=== PATIENT | male | born 1965 | race Two or more races ===

== ENCOUNTER → 2024-05-03 07:32 | Outpatient (REF) | payer BC, SELFPAY | LOC: HWRAD 07:32 | PROVIDERS: ATTENDING PHYSICIAN Physician Assistant | DX: R31.9 Hematuria, unspecified (principal); R06.02 Shortness of breath | CPT/HCPCS: 71046; 74176 ==

== ENCOUNTER 2024-05-03 19:22 | Inpatient (IN) | payer BC, SELFPAY ==
[2024-05-03 14:51] VITALS: BP 102/70
[2024-05-03 15:07] LABS: % Basophils 0.4 % (0-2); % Eosinophils 1.8 % (0-6); % Immature Granulocytes 0.8 % (0-0.5); % Lymphocytes 7.5 % (20.5-51.1); % Monocytes 9.3 % (1.7-9.3); % Neutrophils 80.2 % (42.2-75.2); Absolute Eosinophils 0.1 10^3/uL (0-0.7); Absolute Immature Granulocytes 0.1 10^3/uL (0-0.05); Absolute Lymphocytes 0.6 10^3/uL (1.2-3.4); Absolute Monocytes 0.7 10^3/uL (0.1-0.6); Absolute Neutrophils 5.9 10^3/uL (1.4-6.5); Hematocrit 42.2 % (39.0-52.0); Hemoglobin 14.5 g/dL (13.0-18.0); Mean Corp Hgb Conc. 34.4 g/dL (33.0-37.0); Mean Corpuscular Hgb 27.8 pg (27.0-31.0); Mean Platelet Volume 8.9 fL (7.4-10.4); Nucleated Red Blood Cells % 0 % (-); Platelet Count 243 10^3/uL (130-400); Red Blood Cell Count 5.21 10^6/uL (4.70-6.10); Red Cell Dist. Width 12.6 % (11.5-14.5); White Blood Cell Count 7.3 10^3/uL (4.8-10.8)
[2024-05-03 15:30] LABS: ALT (SGPT) 168 U/L (0-50); AST (SGOT) 91 U/L (17-59); Albumin 4.1 g/dl (3.5-5.0); Alkaline Phosphatase 178 U/L (38-126); Blood Urea Nitrogen 11 mg/dl (9-20); Calcium 9.3 mg/dl (8.4-10.2); Carbon Dioxide 22 mmol/L (22-30); Chloride 101 mmol/L (98-107); Glucose 119 mg/dl (70-99); Potassium 4.2 mmol/L (3.5-5.1); Sodium 135 mmol/L (135-145); Total Bilirubin 1.3 mg/dl (0.2-1.3); Total Protein 6.7 g/dl (6.3-8.2); eGFR > 60.00
[2024-05-03 16:11] LABS: Lipase > 4000 U/L (23-300)
--- NOTE | 2024-05-03 17:39 | ED.GENMED ---
History of Present Illness
General
Chief Complaint: Abdominal Pain
Source: patient and spouse
Exam Limitations: none
Time Seen by Provider: 05/03/24 17:23
Nursing documentation reviewed up to this point in time: agreed with
History of Present Illness
History of Present Illness:
Patient to ED with complaint of upper abd. pain. Symptoms started approx 4-5 days ago. He was seen by PCP and placed on bactrim DS for susptected UTI. He continues to take. Symptoms persisted. He was sent for outpatient abd CT today which
revealed suspected pancreatitis, mesenteric panniculitis, left UVJ stone measuring 8x4mm. He was then sent to ED by PCP for admision. Denies fever but reports chills. +nausea, no vomiting. No prior history of same. Brought to ED by spouse for
eval
Past History
Past History
ED Past Medical History: HTN
ED Past Surgical History: Cholecystectomy
Social History
Tobacco: Non-smoker
Alcohol: None
Drug: None
Personal:
Living: with family
Employment: Employed
Family History
Family History: Hypertension
Review of Systems
Review of Systems
Allergies reviewed?: Yes
All Other Systems: ROS reviewed and negative except as documented in HPI and ROS
Constitutional: Reports chills
EENT: Reports no symptoms
Respiratory: Reports no symptoms
Cardiac: Reports no symptoms
ABD/GI: Reports abdominal pain and nausea
: Reports dark urine
Musculoskeletal: Reports no symptoms
Skin: Reports no symptoms
Neurological: Reports headache
Psychiatric: Reports no symptoms
Phy Exam
General Physical Exam
General Presentation: mild distress
General age: appears stated age
General Skin: warm and dry
General Habitus: normal
General Mental: alert
Cardiovascular Exam
Cardiovascular Exam: regular rate/rhythm and no edema
Pulmonary Exam
Pulmonary Exam: no respiratory distress and chest non tender
Gastrointestinal Exam
Gastrointestinal Exam: normal bowel sounds and guarding
Palpation: left upper quadrant: Moderate tenderness, left lower quadrant: No tenderness, right upper quadrant: Moderate tenderness and right lower quadrant: No tenderness
Musculoskeletal Exam
Musculoskeletal Exam: full ROM and neuro vasc intact
Skin Exam
Skin Exam: normal color, warm/dry and no rash
Psychiatric Exam
Psychiatric Exam: normal mood/affect
Course
Orders/Labs/Results
Orders:
Orders
05/03/24 Dinner
NPO
Allow oral meds: Yes
Allow clear liquids: Sips of Clears
Complete Blood Count/With Diff Urgent
Comprehensive Metabolic Panel Urgent
Lipase Urgent
05/03/24 17:38
0.9% Sodium Chloride 1000 ml [Nss] 1,000 ml IV BOLUS
05/03/24 18:18
Urinalysis Reflex To Culture Urgent
Date Specimen was Collected: 05/03/24
Time Specimen was Collected: 17:39
Urine Microscopic Reflex Cult Urgent
Urine Culture Urgent
ELIEZER Source: U
Specimen Description:
Date Specimen was Collected: 05/03/24
Time Specimen was Collected: 17:39
05/03/24 18:41
Admit/Transfer Patient As Directed
Co-Sign Provider:
Level of Care: Inpatient admission
Assign to:: Medical/Surgical
Physician / Group: Deniz Olivier
Diagnosis: pancreatitis, mesenteric panniculitis, left ureteral calculus
Reason for Hospitalization: pancreatitis, mesenteric panniculitis, left ureteral calculus
Expected length of stay greater than two midnights?: Yes
ELOS- Estimated Length of Stay in days: 3
I certify the patient meets the requirements for IP care: Yes
PRN Pain Medication Management As Directed
May give lesser potent ordered pain med per pt: Yes
preference::
Protocol:: Medication orders for pain may be administered in a
manner that supports deferring to patient preference
when the pt is:
- Requesting an ordered lesser potent pain medication.
Least to most potent pain medications are defined
as: acetaminophen < NSAID < tramadol < opioids
(morphine, oxycodone, hydromorphone).
- Requesting a lesser dose of the same medication IF
ORDERED.
- Requesting a less intrusive route of administration
if both routes are prescribed by the provider (PO <
IV).
05/03/24 18:43
Code Status As Directed
Resuscitation Status: Full Code
05/03/24 21:03
Lactated Ringers [Lr] 1,000 ml IV 150 mls/hr
Morphine Sulfate 1 mg IV Q4HPRN PRN
Ondansetron Injectable [Zofran] 4 mg IV Q6HPRN PRN
05/03/24 21:03
GASTROINTESTINAL CONSULT Routine
Consulting Provider: Judith Boo
Was physician already notified: Yes
UROLOGY CONSULT Routine
Consulting Provider: Jd Rodriguez
Was physician already notified: Yes
Activity As Directed
Activity Level: Ambulate
Pneumatic Compression Sleeves As Directed
Type: Knee high
Vital Signs As Directed
Frequency: Per unit guidelines
05/03/24 22:00
CefTRIAXone [Rocephin] 1,000 mg IV Q24H
05/04/24 06:00
Complete Blood Count/No Diff IN AM
Comprehensive Metabolic Panel IN AM
Lipase IN AM
05/05/24 06:00
Complete Blood Count/No Diff IN AM
Comprehensive Metabolic Panel IN AM
05/06/24 06:00
Complete Blood Count/No Diff IN AM
Comprehensive Metabolic Panel IN AM
Abnormal Lab Results
05/03/24 05/03/24
15 18:18
Abs Immat Gran (auto) 0.1 H 10^3/uL
(0-0.05)
Absolute Lymphs (auto) 0.6 L 10^3/uL
(1.2-3.4)
Absolute Monos (auto) 0.7 H 10^3/uL
(0.1-0.6)
Immature Gran % 0.8 H %
(0-0.5)
Neutrophils % 80.2 H %
(42.2-75.2)
Lymphocytes % 7.5 L %
(20.5-51.1)
Glucose 119 H mg/dl
(70-99)
AST 91 H U/L
(17-59)
ALT 168 H U/L
(0-50)
Alkaline Phosphatase 178 H U/L
(38-126)
Lipase > 4000 H* U/L
(23-300)
Urine Ketones Trace A
(Negative)
Ur Occult Blood Reflex 4+ A
(Negative)
Urine Nitrite (Reflex) Positive A
(Negative)
Urine Bilirubin 1+ A
(Negative)
Urine Urobilinogen 2+ A
(Neg - 1+)
Leukocyte Esterase Rfl 1+ A
(Negative)
Urine RBC 16-20 A /HPF
(0-2)
Urine Bacteria (Reflex) Moderate A
(Negative)
05/03/24 15:00
05/03/24 15:00
Vital Signs
Initial and Last Documented VS:
Initial Vital Signs
Temp Pulse Resp BP Pulse Ox
98.0 F 106 18 102/70 98
05/03/24 14:51 05/03/24 14:51 05/03/24 14:51 05/03/24 14:51 05/03/24 14:51
Last Documented Vital Signs
Temp Pulse Resp BP Pulse Ox
99.7 F 117 16 122/86 99
05/03/24 21:01 05/03/24 21:01 05/03/24 21:01 05/03/24 21:01 05/03/24 21:01
*Radiology
Radiology exam reviewed: other (Outpatient CT report reviewed)
*Pulse Oximetry
Patient hypoxic: no
*Critical Care Note
Total Time (30-74mins, 75-104mins- exclusive of procedures): Not Applicable
Update Note
Update Note:
Patient sent to ED after outpatient CT of abd. today reveals pancreatitis, left 8x4mm UVJ stone ( no significatn hydronephrosis/hydroureter). Upper abd. pain x 4-5 days. Currently on course of bactrim for suspected UTI by PCP. Labs reviewed.
Lipase >4000. Ast 91, ALT 168. Will admit to hospitalist service. UA results pending.
ED Attending Note
-
Portions of this chart may have been created with voice recognition software.� Occasional wrong word or��sound alike� substitutions may have occurred due to the inherent limitations of voice recognition software.
Discharge Plan
Departure
Patient Disposition: Admit
Date of Disposition: 05/03/24
Time of Disposition: 17:48
Presentation/result/management discussed w/ accepting MD/DO: Hospitalist
Condition: Fair
Covid-19: Not Applicable
Discharge Problem:
Acute pancreatitis, Mesenteric panniculitis, Left ureteral calculus
Interventions
Interventions:
*Risk Screen - Suicide Last Done: 05/03/24 14:51
*General Assessment Last Done: 05/03/24 14:51
*Neglect/Abuse Screening Last Done: 05/03/24 14:51
ED- Fall Risk Assessment Last Done: 05/03/24 17:29
*Nursing Disposition Last Done: 05/03/24 21:01
TY-Lcigpr-Rmxqfjpbjk Assessment Last Done: 05/03/24 17:29
Discharge Date and Time
Discharge Date/Time: 05/03/24 21:04
--- NOTE | 2024-05-03 18:01 | HPS.HSE ---
Family Physician
-
Family Physician:
Chief Complaint
-
abdominal pain
History of Present Illness
Patient is a 58-year-old male with past medical history significant for hypertension who presented to [place] ED for evaluation by recommendation of primary provider. Patient reports upper abdominal pain that started 4-5 days ago. Patient reports
noticing blood in urine post work outs and now is consistent every time he urinates. He also complains of generalized abdominal pain for past 4-5 days associated with diarrhea, nausea, subjective fever and chills. Patient primary care provider sent
for outpatient abdominal CT and when received results instructed patient to go to ED for evaluation and treatment. Patient denies any cough, shortness of breath, chest pain, emesis, or constipation.
Medical History
Past Medical History
Past Medical History: Reports Other
Additional Past Medical History:
Hypertension
Past Surgical History: Reports Other
Additional Past Surgical History:
cholecystectomy
Social History
Tobacco: Non-smoker
Alcohol: None
Drug: None
Personal:
Living: With Family
Employment: Employed
Family History
Family History: Not pertinent
Allergies / Home Medications
Allergies reflects when Allergies were last updated in [facility].
Home Medications with original date entered in [facility]
Allergy/Medication List:
Allergies
Allergy/AdvReac Type Severity Reaction Status Date / Time
No Known Allergies Allergy Verified 05/03/24 14:51
Home Medications
acetaminophen 500 mg tablet (Tylenol Extra Strength) 1,000 mg PO Q6HPRN PRN mild pain 05/03/24
lisinopril 5 mg tablet 5 mg PO DAILY 05/03/24
sulfamethoxazole 800 mg-trimethoprim 160 mg tablet (Bactrim DS) 1 tab PO BID 05/03/24
Review of Systems
-
History Source: Patient
Constitutional: Reports Fever and Chills
EENT: Reports No Symptoms
Respiratory: Reports No Symptoms
Cardiac: Reports No Symptoms
Abdomen/GI: Reports Abdominal Pain, Nausea and Diarrhea
: Reports Frequency, Urgency and Dark Urine
Musculoskeletal: Reports No Symptoms
Skin: Reports No Symptoms
Neurological: Reports No Symptoms
Endocrine: Reports No Symptoms
Hematologic/Lymphatic: Reports No Symptoms
Psych: Reports No Symptoms
Physical Exam
Vital Signs
Vital Signs
Temp Pulse Resp BP Pulse Ox
98.0 F 106 18 102/70 98
05/03/24 14:51 05/03/24 14:51 05/03/24 14:51 05/03/24 14:51 05/03/24 14:51
Physical Exam
General: Well Developed, Well Nourished, No Apparent Distress and Conversant
HEENT: NormoCephalic, Moist mucous membranes, Atraumatic, [place] Conjunctivae, Nose Appears Normal and Ears Appear Normal
Respiratory: Clear and Non Labored Respirations
Cardiac: S1/S2 and Regular Rhythm; No Murmur, Rub or Gallop
Breast: Deferred by me
GI: Soft, Normal Bowel Sounds, Tender and Distended (mild distension); No Organomegaly
Rectal: Deferred by Provider
Genito-urinary: Bloody Urine
Musculoskeletal: No Clubbing, No Cyanosis and No Edema
Skin: Warm and IV/Catheter Site; No Rash
Neuro: Awake, Alert, AO x 3 and Nonfocal/grossly intact
Hematologic/Lymphatic: No Lymphadenopathy
Psych: Calm and Intact Judgment/Insight
Laboratory Results
-
05/03/24 15:00
05/03/24 15:00
Laboratory Results
Total Bilirubin 1.3 mg/dl (0.2-1.3) 05/03/24 15:00
AST 91 U/L (17-59) H 05/03/24 15:00
ALT 168 U/L (0-50) H 05/03/24 15:00
Alkaline Phosphatase 178 U/L (38-126) H 05/03/24 15:00
Lipase > 4000 U/L (23-300) H* 05/03/24 15:00
Data Reviewed
-
Diagnostic Radiology: Report Reviewed by me (CXR: No radiographic evidence of acute cardiopulmonary abnormality.)
CT Scan: Report Reviewed by me (Abd/Pelvis:1).There is an 8 x 4 mm calculus at the left ureteropelvic junction without significant associated left hydronephrosis 2). There is an approximately 12 cm area of mesenteric panniculitis 3). Separate from
the mesenteric panniculitis, there is inflammatory stranding around the tail and p)
Lab Data: Labs Reviewed by me (neut 80.2, AST 91, ALT 168, Alk Phos 175, Lipase >4000)
Impression/Plan
-
IMPRESSION/PLAN:
#pancreatitis
#mesenteric panniculitis
Abd/Pelvis CT: 1).There is an 8 x 4 mm calculus at the left ureteropelvic junction without significant associated left hydronephrosis
2). There is an approximately 12 cm area of mesenteric panniculitis
3). Separate from the mesenteric panniculitis, there is inflammatory stranding around the tail and proximal body of the pancreas with associated inflammatory thickening of the left anterior pararenal fascia suggesting
pancreatitis, the
appearance of which has worsened in the interval since the 05/31/2020 examination. Correlation with patient's serum amylase and lipase is recommended.
4). There is cholecystectomy
5). Bilateral renal cysts including a septated cyst at the lower pole.
6). Degenerative disc disease at L5-S1
- Admit to med/surg
- consult GI
- IVF with LR
- pain regimen
- antiemetics
#infected left ureteral calculus
Abd/Pelvis CT: 1).There is an 8 x 4 mm calculus at the left ureteropelvic junction without significant associated left hydronephrosis
2). There is an approximately 12 cm area of mesenteric panniculitis
3). Separate from the mesenteric panniculitis, there is inflammatory stranding around the tail and proximal body of the pancreas with associated inflammatory thickening of the left anterior pararenal fascia suggesting
pancreatitis, the
appearance of which has worsened in the interval since the 05/31/2020 examination. Correlation with patient's serum amylase and lipase is recommended.
4). There is cholecystectomy
5). Bilateral renal cysts including a septated cyst at the lower pole.
6). Degenerative disc disease at L5-S1
- consult urology
- Ceftriaxone
#Hypertension
- hold lisinopril
Code Status: Full code
DVT Prophylaxis: SCDs
[2024-05-03] MEDS: NSS 1000 IV (18:10)
[2024-05-03 18:24] LABS: Urine Albumin Trace (Neg - Trace); Urine Bilirubin 1+ (Negative); Urine Character Slightly Cloudy (Clear); Urine Color Yellow; Urine Glucose Negative (Negative); Urine Ketone Trace (Negative); Urine Leukocyte 1+ (Negative); Urine Nitrite Positive (Negative); Urine Occult Blood 4+ (Negative); Urine Specific Gravity 1.025 (<1.030); Urine Urobilinogen 2+ (Neg - 1+)
[2024-05-03 18:36] LABS: Urine Bacteria Moderate (Negative); Urine Red Blood Cell 16-20 /HPF (0-2); Urine Squamous Cell 0-2 /LPF (Few); Urine White Cell 0-2 /HPF (0-5)
[2024-05-03 18:37] LABS: Urine Calcium Oxalate Crystals Present; Urine Mucus Few
--- NOTE | 2024-05-03 18:37 | W.PN.UPDATE ---
Update Note
Progress Note Update
This is an addendum to the H&P written by Naz Mcarthur on 05/03/2024. Patient seen and examined independently with MECH[employer]IC [employer]IVER.
58-year-old male past medical history of gallstone pancreatitis status post cholecystectomy, hypertension, presenting with hematuria, generalized abdominal pain starting 4 to 5 days ago. He was started on Bactrim for suspected UTI. He had
outpatient CT scan today which revealed suspected pancreatitis at the tail of the pancreas, mesenteric panniculitis and left UVJ stone 8 x 4 mm. He was sent to the emergency room. Has chills without fever. Has nausea without vomiting.
Patient tachycardic with normal vitals otherwise.
Labs show transaminitis and lipase greater than 4000. Chest x-ray shows no acute process.
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
Urinalysis appears infected.
NPO. IV fluids. Ceftriaxone to treat obstructive stone infection. Dilaudid/Zofran. GI consulted. Urology consulted. Hold lisinopril.
[2024-05-03 18:38] VITALS: BP 106/74
[2024-05-03 21:01] VITALS: BP 122/86; BMI 29.1
[2024-05-03] MEDS: LR 1000 IV (21:28)
[2024-05-03] MEDS: STERILE WATER FOR INJECTION 10 ML IV (21:28)
[2024-05-03] MEDS: ROCEPHIN 1000 MG IV (21:28)
[2024-05-03] MEDS: FLUSH (NSS) 1 FLUSH IV ×2 (21:29)
[2024-05-03 23:45] VITALS: BP 115/81
[2024-05-04] VITALS (16 sets, daily range): BP systolic 117–134; BP diastolic 72–115
[2024-05-04] MEDS: LR 1000 IV ×3 (04:33→20:43)
[2024-05-04 06:44] LABS: Hematocrit 38.1 % (39.0-52.0); Mean Corp Hgb Conc. 34.1 g/dL (33.0-37.0); Mean Corpuscular Hgb 28.1 pg (27.0-31.0); Mean Corpuscular Volume 82.5 fL (80.0-94.0); Mean Platelet Volume 9.2 fL (7.4-10.4); Platelet Count 234 10^3/uL (130-400); Red Blood Cell Count 4.62 10^6/uL (4.70-6.10)
[2024-05-04 07:55] LABS: ALT (SGPT) 138 U/L (0-50); AST (SGOT) 65 U/L (17-59); Albumin 3.3 g/dl (3.5-5.0); Alkaline Phosphatase 175 U/L (38-126); Blood Urea Nitrogen 10 mg/dl (9-20); Calcium 8.5 mg/dl (8.4-10.2); Carbon Dioxide 22 mmol/L (22-30); Chloride 104 mmol/L (98-107); Estimated Creatinine Clearance 96 ml/min; Glucose 80 mg/dl (70-99); Potassium 4.3 mmol/L (3.5-5.1); Sodium 135 mmol/L (135-145); Total Bilirubin 1.4 mg/dl (0.2-1.3); Total Protein 5.8 g/dl (6.3-8.2); eGFR > 60.00
[2024-05-04 08:14] LABS: Lipase > 4000 U/L (23-300)
--- NOTE | 2024-05-04 08:47 | W.PN.URO.CBU ---
Today's Communication / Plan
-
op room
Assessment / Plan
-
impassable stone and pacncraetiis but stone may cbe single source of discomfort plan to op roon and stenting and attempt stone retrieval if stable
Diagnosis
-
Date of Service: May 04, 2024
-
Patient Diagnosis:dx is chronic pancreatitis but new left 8mm upj stone
Post Op Day:
Subjective
-
mid epigastic pain hematuria
Objective
-
Vital Signs
Temp Pulse Resp BP Pulse Ox
98.0 F 104 16 125/72 100
05/04/24 07:41 05/04/24 07:41 05/04/24 07:41 05/04/24 07:41 05/04/24 07:41
Intake and Output
05/03/24 05/04/24 05/05/24
06:59 06:59 06:59
Intake Total 1540 / 1540
Balance 1540 / 1540
Intake:
Oral fluids 240 / 240
IV fluids (Total) 1300 / 1300
Other:
Number of approximated MODERATE 1
amounts of urine
Laboratory Results
05/04/24 06:12
05/04/24 06:12
Review of Systems
-
Abdomen/GI: Abdominal Pain and Nausea
: Flank Pain
Physical Exam
-
General - well developed, well nourished, no acute distress non toxic
Chest - clear bilaterally
Abdomen - soft, non-tender, positive bowel sounds, no CVAT, no incisional pain or distention
Genitalia - normal
Rectal - normal
Skin - warm & dry with no rash
Neuro - AOx3, no motor deficits
Extremities - no clubbing, no cyanosis, no edema
Incision - clean, dry
Dressing - clean, dry, intact
Care Review
Data Reviewed
Discussed with: Nursing and Family
CT Scan: Image Pers Reviewed
--- NOTE | 2024-05-04 11:00 | CON.GI ---
Addendum entered and electronically signed by Tiffanie Marin DO 05/04/24 15:13:
The patient was seen and examined by me independently in collaboration with the nurse practitioner.
Past medical history/social history/medications/allergies/family history reviewed.
Lab data and imaging data reviewed.
Briefly, Romain Cronin is a 58 y.o. male with pmhx gallstone pancreatitis s/p cholecystectomy (2020) admitted with 1 week of hematuria s/p treatment with bactrim, CT on arrival showed 8x4 mm calculus at the left ureteropelvic junction w/o hydro, 12
cm area of mesenteric panniculitis and inflammatory stranding around the tail and proximal body of the pancreas with inflammatory thickening of the left anterior pararenal fascia consistent with acute pancreatitis. He was seen by Urology this
morning, taken to the OR for cystoscopy w/ stent placement. 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
BUN 10/Cr. 0.8
Tbili 1.3 --> 1.4
AST 91 --> 65
ALT 168 --> 138
Alk phos 178--> 175
Lipase >4,000
This is a very puzzling presentation as I initially felt his UPJ stone could be causing nearby inflammation, leading to his acute pancreatitis and findings of mesenteric panniculitis. However, patient had same exact findings on imaging in 2020 at
the time of prior gallstone pancreatitis. His presenting symptoms and exam is not consistent with acute pancreatitis and not sure what to make of it and if there are truly 2 separate processes occuring simultaneously. Interestingly, patient received
Bactrim on both occasions where he has been diagnosed with acute pancreatitis. It is a documented side-effect but rare occurrence. Regardless, I would recommend treating for acute pancreatitis with fluids and advancing diet as tolerating. Agree with
stopping Bactrim, changed to Rocephin.
Once he is discharged, outpatient f/u with GI for MRCP-- ideally waiting about 4-6 weeks until inflammation resolves. If unrevealing, would even consider EUS given the atypical presentation.
Original Note:
Consultation
-
Date/Time Consultation Requested: 05/03/24 1500
Date/Time Consultation Performed: 05/04/24 1100
Requesting Provider: MURRAY Yi
Performing Provider: MURRAY Hui, Carmita Marin DO
Reason for Consultation: pancreatitis/ panniculutis
Medical History
Chief Complaint / HPI
Chief Complaint: abdominal pain
History of Present Illness:
Pt is a 58yo with hx HTN, prior delano with pancreatitis in 2020 with noted Bactrim use prior to that admission. CT at that time with possible CBD stone and primary mesenteric panniculitis but MRI without stone and delano was completed and discharge.
He has been fine since that time and now noted with hematuria about 1 week ago. He was given Bactrim by PCP and felt worse with mild mid abdominal pain, fever and diarrhea. with onset of upper abdominal pain. With persistent symptoms sent
for CT with noted multiple finding including 8x4 mm calculus left ureteropelvic junction without hydro, 12 cm area of mesenteric panniculitis, inflammatory stranding around tail and proximal body of pancreas with inflammatory thickening left
anterior pararenal fascia suggest pancreatitis worsened since 2020, prior delano, b/l renal cyst, and DDD.
At this time he admits to diarrhea and dull abdominal pain 3-4/10. He denies dysphagia, GERD, constipation or rectal bleeding. Denies change in stool or urine color other than noted hematuria.
Past Medical History
Past Medical History: HTN and Other (pancreatitis 2020 with prior delano, mesenteric panniculitis seen in CT 2020 )
Past Surgical History: Cholecystectomy
Social History
Tobacco: Non-Smoker
Alcohol: None
Drug: None
Personal:
Living: With Family
Employment: Employed
Family History
Family History: Other (mother with hx sarcoma)
Allergies / Home Medications
Allergy/AdvReac Type Severity Reaction Status Date / Time
No Known Allergies Allergy Verified 05/03/24 14:51
�Medication �Instructions �Recorded
acetaminophen 500 mg tablet 1,000 mg PO Q6HPRN PRN mild pain 05/03/24
(Tylenol Extra Strength)
lisinopril 5 mg tablet 5 mg PO DAILY 05/03/24
sulfamethoxazole 800 1 tab PO BID 05/03/24
mg-trimethoprim 160 mg tablet
(Bactrim DS)
Review of Systems
-
History Source: Patient and Family
Constitutional: Reports Fever
EENT: Reports No Symptoms
Respiratory: Reports No Symptoms
Abdomen/GI: Reports Abdominal Pain and Diarrhea
: Reports Bleeding
Musculoskeletal: Reports Other (some chronic back pain )
Skin: Reports No Symptoms
Neurological: Reports Weakness
Endocrine: Reports No Symptoms
Hematologic/Lymphatic: Reports Bleeding
Vital Signs
Temp Pulse Resp BP Pulse Ox
98.0 F 104 16 125/72 100
05/04/24 07:41 05/04/24 07:41 05/04/24 07:41 05/04/24 07:41 05/04/24 07:41
Physical Exam
Exam
General: Well Developed, Well Nourished and No Apparent Distress
HEENT: Normocephalic
Respiratory: Clear
Cardiac: Other (tachy)
GI: Soft, Non Distended and Tender (minimal mid abdominal tenderness )
Musculoskeletal: No Clubbing and No Cyanosis
Skin: Warm and Dry
Neuro: Awake, Alert and AO x 3
Psych: Calm
Results
WBC 8.0 10^3/uL (4.8-10.8) 05/04/24 06:12
Hgb 13.0 g/dL (13.0-18.0) 05/04/24 06:12
Hct 38.1 % (39.0-52.0) L 05/04/24 06:12
MCV 82.5 fL (80.0-94.0) 05/04/24 06:12
Plt Count 234 10^3/uL (130-400) 05/04/24 06:12
Absolute Neuts (auto) 5.9 10^3/uL (1.4-6.5) 05/03/24 15:00
Sodium 135 mmol/L (135-145) 05/04/24 06:12
Potassium 4.3 mmol/L (3.5-5.1) 05/04/24 06:12
Chloride 104 mmol/L (98-107) 05/04/24 06:12
Carbon Dioxide 22 mmol/L (22-30) 05/04/24 06:12
BUN 10 mg/dl (9-20) 05/04/24 06:12
Creatinine 0.8 mg/dL (0.7-1.3) 05/04/24 06:12
Calcium 8.5 mg/dl (8.4-10.2) 05/04/24 06:12
Total Bilirubin 1.4 mg/dl (0.2-1.3) H 05/04/24 06:12
AST 65 U/L (17-59) H 05/04/24 06:12
ALT 138 U/L (0-50) H 05/04/24 06:12
Alkaline Phosphatase 175 U/L (38-126) H 05/04/24 06:12
Lipase > 4000 U/L (23-300) H* 05/04/24 06:12
Diagnostic Image Results:
05/03/24 CXR
No radiographic evidence of acute cardiopulmonary abnormality.
05/03/24 CT Abd/pel Without Iv Or Oral
1).There is an 8 x 4 mm calculus at the left ureteropelvic junction without significant associated left hydronephrosis
2). There is an approximately 12 cm area of mesenteric panniculitis
3). Separate from the mesenteric panniculitis, there is inflammatory stranding around the tail and proximal body of the pancreas with associated inflammatory thickening of the left anterior pararenal fascia suggesting pancreatitis, the appearance of
which has worsened in the interval since the 05/31/2020 examination. Correlation with patient's serum amylase and lipase is recommended.
4). There is cholecystectomy
5). Bilateral renal cysts including a septated cyst at the lower pole.
6). Degenerative disc disease at L5-S1
2020 CT Abd/pelvis W Iv Cont
IMPRESSION: Cholelithiasis. There appears to be at least one calcification within the common bile duct, suggesting a common bile duct calculus. The common bile duct is slightly dilated, measuring up to 8 mm in diameter.
Stranding edema adjacent to the pancreas, mainly adjacent to the tail the pancreas, and findings likely represent pancreatitis. There is also edema within the central mesenteric fat, which is likely reactive edema within the mesentery.
A primary mesenteric panniculitis could be considered as a differential consideration, but felt to be less likely given the rest of the findings on this scan.
There is no gross evidence for pancreatic necrosis. There is no evidence of a fluid collection to suggest a developing abscess.
Lobulated bilateral renal cysts.
2020 MRI with and without contrast
No filling defect in the common bile duct. The common bile duct and pancreatic ducts are normal caliber.
Cholelithiasis. Gallbladder otherwise unremarkable.
Very mild pancreatitis, mild inflammatory stranding most prominent along the tail of the pancreas as seen on CT. No enhancing lesion. No evidence of pancreatic necrosis although there is a slight decrease in enhancement at the junction of the
pancreatic body and tail. Follow-up to exclude progression of pancreatitis. No pseudocyst.
Several small cysts in the liver, do not enhance. There is a 7 mm enhancing lesion in the posterior inferior right hepatic lobe which is most consistent with either an adenoma or atypical hemangioma. No other enhancing lesion identified.
Multiple varying size cysts in the kidneys bilaterally similar to the prior CT.
Prior GI Procedures:
EGD: none
Colonoscopy: 2018 daly normal
Assessment / Plan
-
Pt is a 58yo with hx HTN, prior delano with pancreatitis in 2020 with noted Bactrim use prior to that admission. CT at that time with possible CBD stone and primary mesenteric panniculitis but MRI without stone and delano was completed and discharge.
He has been fine since that time and now noted with hematuria about 1 week ago. He was given Bactrim by PCP and felt worse with mild mid abdominal pain, fever and diarrhea. with onset of upper abdominal pain. With persistent symptoms sent
for CT non contrast with noted multiple finding including 8x4 mm calculus left ureteropelvic junction without hydro, 12 cm area of mesenteric panniculitis, inflammatory stranding around tail and proximal body of pancreas with inflammatory thickening
left anterior pararenal fascia suggest pancreatitis worsened since 2020, prior delano, b/l renal cyst, and DDD.
-CT with proximal body and tail pancreatitis
-increased LFT's and lipase
-CT with area of mesenteric panniculitis as noted also in 2020
-hematuria with 8x4 mm left UPJ calculus
-hx pancreatitis with delano 2020
-recent Bactrim use prior to admission
-tachycardia
-? fever prior to admission
other med problems:
-HTN
PLAN:
etiology of increased LFT's/lipase and noted pancreatitis secondary to urologic process with noted stone and inflammation, side effect of bactrim (as prior pancreatitis also noted after bactrim use), CBD stone/biliary issues with also elevated LFT's
vs other
pt also with noted persistent mesenteric panniculitis in 2020 and now
for OR now for stone/stenting
t/c contrast imaging -- MRI/MRCP
I spoke with MRI will review if able to do MRI post stenting
agree with stopping Bactrim currently on Rocephin
trend labs
NPO
cont IVF LR at 150ml/hr
reviewed with Dr. Marin and Dr. Lugo
-
-
Thank you for consultation and allowing me to participate in the patient's care. Please call the burial needs salesperson GI physician during the after hours with any questions or concerns.
--- NOTE | 2024-05-04 11:22 | CM ---
CM reviewed medical records. CM met with patient in room. Patient confirmed demographics. Patient lives independently with . NO history of VN, DME or SNF. Patient is active with his PCP. Patient uses [facility] in [place] for medication services.
PLAN: home no needs
[2024-05-04] MEDS: LR IV (11:34)
--- NOTE | 2024-05-04 11:35 | PTCARENOTE ---
Report given to OR, pt sent.
--- NOTE | 2024-05-04 13:14 | W.PN.URO.CBU ---
Today's Communication / Plan
-
draw blood cxs x2
Assessment / Plan
-
impassable stone and pacncraetiis but stone may cbe single source of discomfort plan to op roon and stenting and attempt stone retrieval if stablebut had fever on table will cx check for sepsis
Diagnosis
-
Date of Service: May 04, 2024
-
Patient Diagnosis:
Post Op Day:
Patient Diagnosis:dx is chronic pancreatitis but new left 8mm upj stone ns/p l;aser stent pt had fevbr 99.9 tachcradia was stable throughout procedure
Post Op Day:
Subjective
-
stent pain frequecny
Objective
-
Vital Signs
Temp Pulse Resp BP Pulse Ox
98.6 F 104 12 134/85 99
05/04/24 11:18 05/04/24 11:18 05/04/24 11:18 05/04/24 11:18 05/04/24 11:18
Intake and Output
05/03/24 05/04/24 05/05/24
06:59 06:59 06:59
Intake Total 1540 / 1540
Balance 1540 / 1540
Intake:
Oral fluids 240 / 240
IV fluids (Total) 1300 / 1300
Other:
Number of approximated MODERATE 1
amounts of urine
Laboratory Results
05/04/24 06:12
05/04/24 06:12
Review of Systems
-
: Flank Pain
Physical Exam
-
General - well developed, well nourished, no acute distress
Chest - clear bilaterally
Abdomen - soft, non-tender, positive bowel sounds, no CVAT, no incisional pain or distention
Genitalia - normal
Rectal - normal
Skin - warm & dry with no rash
Neuro - AOx3, no motor deficits
Extremities - no clubbing, no cyanosis, no edema
Incision - clean, dry
Dressing - clean, dry, intact
Care Review
Data Reviewed
Discussed with: Hospitalist, Nursing and Family
CT Scan: Image Pers Reviewed
--- NOTE | 2024-05-04 14:04 | W.PN.HOSP.TC ---
Today's Communication/Plan
-
See plan
Assessment / Plan
Assessment / Plan
Impression:
Complicated UTI.
Left UPJ large 8 mm stone.
Acute pancreatitis
Status post cholecystectomy
Essential hypertension
Plan:
Complicated UTI.
Left UPJ large 8 mm stone
Urology input appreciated.
Status post cystoscopy with stent placement on 05/04.
Patient tachycardic with initiation of procedure.
Monitor closely for evolving sepsis.
IV fluid bolus.
Blood cultures pending.
Empiric antibiotics ceftriaxone.
Concern for pancreatitis
Prior history of cholecystectomy.
Currently abdominal pain-free.
CT scan
1).There is an 8 x 4 mm calculus at the left ureteropelvic junction without significant associated left hydronephrosis
2). There is an approximately 12 cm area of mesenteric panniculitis
3). Separate from the mesenteric panniculitis, there is inflammatory stranding around the tail and proximal body of the pancreas with associated inflammatory thickening of the left anterior pararenal fascia suggesting pancreatitis, the appearance of
which has worsened in the interval since the 05/31/2020 examination. Correlation with patient's serum amylase and lipase is recommended.
4). There is cholecystectomy
5). Bilateral renal cysts including a septated cyst at the lower pole.
6). Degenerative disc disease at L5-S1.
Keep n.p.o. for now
IV fluids
May require additional imaging with MRI/MRCP
Currently on Bactrim that could be another culprit for medication induced pancreatitis. Has been on lisinopril for long time.
Essential hypertension
Hold lisinopril acutely.
Anticipated Discharge: > 48 hours
Subjective/Interval History
-
Date of Service: May 04, 2024
Objective Data
-
Labs:
Laboratory Results
05/04/24
06:12
WBC 8.0
Hgb 13.0
Hct 38.1 L
Plt Count 234
Sodium 135
Potassium 4.3
Chloride 104
Carbon Dioxide 22
BUN 10
Creatinine 0.8
Glucose 80
Calcium 8.5
Total Bilirubin 1.4 H
AST 65 H
ALT 138 H
Alkaline Phosphatase 175 H
Vital Signs:
Vital Signs
Temp Pulse Resp BP Pulse Ox
98.8 F 95 17 119/84 99
05/04/24 13:23 05/04/24 13:30 05/04/24 13:30 05/04/24 13:30 05/04/24 13:30
I&O
05/03/24 05/04/24 05/05/24
06:59 06:59 06:59
Intake Total 1540 / 1540
Balance 1540 / 1540
Physical Exam
-
General: Well Developed and No Apparent Distress
HEENT: Normocephalic, Atraumatic and Moist Mucous Membranes
Respiratory: Clear to Auscultation
Cardiac: Regular Rhythm and S1/S2; Negative Murmur, Rub or Gallop
GI: Soft, Nontender, Nondistended and Normal Bowel Sounds; Negative Organomegaly
Rectal: Deferred by Provider
Musculoskeletal: No Clubbing, No Cyanosis and No Edema
Skin: Negative Rash
Neuro: Nonfocal/Grossly Intact
[2024-05-04] MEDS: FLUSH (NSS) 1 FLUSH IV ×2 (21:21→21:33)
[2024-05-04] MEDS: STERILE WATER FOR INJECTION 10 ML IV (21:21)
[2024-05-04] MEDS: ROCEPHIN 1000 MG IV (21:21)
[2024-05-05 03:10] VITALS: BP 130/86
[2024-05-05] MEDS: LR 1000 IV (03:39)
[2024-05-05 07:31] VITALS: BP 146/94
[2024-05-05 08:08] LABS: Hematocrit 40.8 % (39.0-52.0); Hemoglobin 13.7 g/dL (13.0-18.0); Mean Corp Hgb Conc. 33.6 g/dL (33.0-37.0); Mean Corpuscular Hgb 27.7 pg (27.0-31.0); Mean Corpuscular Volume 82.6 fL (80.0-94.0); Mean Platelet Volume 9.3 fL (7.4-10.4); Platelet Count 271 10^3/uL (130-400); Red Blood Cell Count 4.94 10^6/uL (4.70-6.10); Red Cell Dist. Width 12.8 % (11.5-14.5); White Blood Cell Count 12.5 10^3/uL (4.8-10.8)
[2024-05-05 08:44] LABS: ALT (SGPT) 111 U/L (0-50); AST (SGOT) 42 U/L (17-59); Albumin 3.5 g/dl (3.5-5.0); Alkaline Phosphatase 210 U/L (38-126); Blood Urea Nitrogen 11 mg/dl (9-20); Calcium 9.1 mg/dl (8.4-10.2); Carbon Dioxide 21 mmol/L (22-30); Chloride 104 mmol/L (98-107); Estimated Creatinine Clearance 110 ml/min; Glucose 105 mg/dl (70-99); Potassium 4.2 mmol/L (3.5-5.1); Sodium 137 mmol/L (135-145); Total Bilirubin 0.6 mg/dl (0.2-1.3); Total Protein 6.4 g/dl (6.3-8.2); eGFR > 60.00
--- NOTE | 2024-05-05 09:12 | W.PN.URO.CBU ---
Today's Communication / Plan
-
PLan oer hospitalist
Assessment / Plan
-
impassable stone and pacncraetiis but stone may cbe single source of discomfort plan nOW AFEVBRILE FEELS WELL WILL CHECK CXS BUT STABLE UROLOGIVCALLY PLAN PER HOSPITALIST
Diagnosis
-
Date of Service: May 05, 2024
-
Patient Diagnosis:
Post Op Day:
Patient Diagnosis:
Post Op Day:
Patient Diagnosis:dx is chronic pancreatitis but new left 8mm upj stone ns/p l;aser stent pt had fevbr 99.9 tachcradia was stable throughout procedure
Post Op Day:
Subjective
-
FEELS WELL NO FEVER
Objective
-
Vital Signs
Temp Pulse Resp BP Pulse Ox
97.6 F 101 14 146/94 99
05/05/24 07:31 05/05/24 07:31 05/05/24 07:31 05/05/24 07:31 05/05/24 07:31
Intake and Output
05/04/24 05/05/24 05/06/24
06:59 06:59 06:59
Intake Total 1540 / 1540 3260 / 3260
Output Total 1375 / 1375
Balance 1540 / 1540 1885 / 1885
Intake:
Oral fluids 240 / 240 960 / 960
IV fluids (Total) 1300 / 1300 2300 / 2300
Normosal 500 / 500
Output:
Urine, Voided 1375 / 1375
Other:
Number of approximated MODERATE 1
amounts of urine
Laboratory Results
05/05/24 07:21
05/05/24 07:21
Review of Systems
-
: Dysuria and Urgency
Physical Exam
-
General - well developed, well nourished, no acute distress
Chest - clear bilaterally
Abdomen - soft, non-tender, positive bowel sounds, no CVAT, no incisional pain or distention
Genitalia - normal
Rectal - normal
Skin - warm & dry with no rash
Neuro - AOx3, no motor deficits
Extremities - no clubbing, no cyanosis, no edema
Incision - clean, dry
Dressing - clean, dry, intact
Care Review
Data Reviewed
Discussed with: Nursing and Family
[2024-05-05 11:34] VITALS: BP 134/93
--- NOTE | 2024-05-05 12:20 | W.DS.TRANS ---
DC Summary - [employer]
-
Discharge Instructions:
Discharge Diagnosis/Procedures renal stone
Diet Low Fat
Instructions:
Stand-Alone Forms:
Changes to Home Medications: Yes
Discharge Medications:
DC Medications w/original date entered in [facility]
acetaminophen 500 mg tablet (Tylenol Extra Strength) 1,000 mg PO Q6HPRN PRN mild pain 05/03/24
lisinopril 5 mg tablet 5 mg PO DAILY 05/03/24
levofloxacin 500 mg tablet 500 mg PO DAILY 5 days #5 tabs 05/05/24
Home Medication Changes
Stop Bactrim. Start Eliquis
Pending Results: No
--- NOTE | 2024-05-05 12:41 | CM ---
CM reviewed medical records. Plan for discharge to home today.
PLAN: home no needs.
--- NOTE | 2024-05-05 12:55 | W.PN.GI.CBS2 ---
Today's Communication / Plan
-
OK for d/c today
LFTs improved
Gave slip to get LFTs and lipase checked next week
F/U with Dr Marin and get MRI/MRCP in 2 months to f/u pancreatitis and mesenteric panniculitis
Assessment / Plan
-
Pt is a 58yo with hx HTN, prior delano with pancreatitis in 2020 with noted Bactrim use prior to that admission. CT at that time with possible CBD stone and primary mesenteric panniculitis but MRI without stone and delano was completed and discharge.
He has been fine since that time and now noted with hematuria about 1 week ago. He was given Bactrim by PCP and felt worse with mild mid abdominal pain, fever and diarrhea. with onset of upper abdominal pain. With persistent symptoms sent
for CT non contrast with noted multiple finding including 8x4 mm calculus left ureteropelvic junction without hydro, 12 cm area of mesenteric panniculitis, inflammatory stranding around tail and proximal body of pancreas with inflammatory thickening
left anterior pararenal fascia suggest pancreatitis worsened since 2020, prior delano, b/l renal cyst, and DDD.
-CT with proximal body and tail pancreatitis
-increased LFT's and lipase
-CT with area of mesenteric panniculitis as noted also in 2020
-hematuria with 8x4 mm left UPJ calculus
-hx pancreatitis with delano 2020
-recent Bactrim use prior to admission
-tachycardia
-? fever prior to admission
other med problems:
-HTN
Subjective
Subjective
Date of Service: May 05, 2024
Feels well. Denies abd pain. Eating lunch
Objective
Data Reviewed
Laboratory Data:
Laboratory Results
05/05/24 07:21
05/05/24 07:21
Laboratory Results
Total Bilirubin 0.6 mg/dl (0.2-1.3) 05/05/24 07:21
AST 42 U/L (17-59) 05/05/24 07:21
ALT 111 U/L (0-50) H 05/05/24 07:21
Alkaline Phosphatase 210 U/L (38-126) H 05/05/24 07:21
Lipase > 4000 U/L (23-300) H* 05/04/24 06:12
Vital Signs and I&O:
Vital Signs
Temp Pulse Resp BP Pulse Ox
97.9 F 106 18 134/93 97
05/05/24 11:34 05/05/24 11:34 05/05/24 11:34 05/05/24 11:34 05/05/24 11:34
I&O
05/04/24 05/05/24 05/06/24
06:59 06:59 06:59
Intake Total 1540 / 1540 3260 / 3260
Output Total 1375 / 1375
Balance 1540 / 1540 1885 / 1885
Physical Exam
Physical Exam
GI: Soft, Non Distended and Non Tender
[2024-05-05] MEDS: LEVAQUIN 500 MG PO (13:03)
== END 2024-05-05 13:22 | disposition home or self-care (01) | DRG 988 ==
LOC: 1 ACUTE 19:22
PROVIDERS: Nurse Practitioner; Nurse Practitioner Family; ADMITTING PHYSICIAN Hospitalist; ATTENDING PHYSICIAN Internal Medicine; CONSULT PHYSICIAN Specialist; EMERGENCY PHYSICIAN Emergency Medicine; FAMILY PHYSICIAN Physician Assistant; OTHER PHYSICIAN Internal Medicine
PROC: 0T778DZ Dilation of Left Ureter with Intraluminal Device, Via Natural or Artificial Opening Endoscopic (ICD-10-PCS; 2024-05-05)
PROC: 0TC78ZZ Extirpation of Matter from Left Ureter, Via Natural or Artificial Opening Endoscopic (ICD-10-PCS; 2024-05-05)
DX: K85.90 Acute pancreatitis without necrosis or infection, unspecified (principal); K65.4 Sclerosing mesenteritis; N20.1 Calculus of ureter; N39.0 Urinary tract infection, site not specified; I10 Essential (primary) hypertension; K80.20 Calculus of gallbladder without cholecystitis without obstruction; K76.89 Other specified diseases of liver; M51.379 Other intervertebral disc degeneration, lumbosacral region without mention of lumbar back pain or lower extremity pain; N28.1 Cyst of kidney, acquired; N40.0 Benign prostatic hyperplasia without lower urinary tract symptoms
CPT/HCPCS: 74018; 76000; 80053; 81003; 81015; 82365; 83690; 85025; 85027; 87040; 87086; 96360; 99284; A4300; C1894; C2617